=== PATIENT | male | born 1935 | race Hispanic/Latino ===

== ENCOUNTER → 2020-03-12 | Day surgery (SDC) | payer MEDICARE ==
[2020-03-07 10:14] LABS: BASOPHILS # (AUTO) 0.1 (0.0-0.1); BASOPHILS % 0.5 % (0.0-1.0); EOSINOPHILS # (AUTO) 0.1 (0.0-0.4); EOSINOPHILS % 0.9 % (0.0-6.0); HEMATOCRIT 43.4 % (38.2-49.6); LYMPHOCYTES # (AUTO) 3.7 (1.0-3.2); LYMPHOCYTES % 24.6 % (18.0-39.1); MEAN CORPUSCULAR HGB CONC 32.3 g/dL (31-35); MEAN CORPUSCULAR VOLUME 93.1 fL (81-99); MONOCYTES # (AUTO) 1.2 (0.2-0.8); MONOCYTES % 7.8 % (4.4-11.3); NEUTROPHILS # (AUTO) 9.5 (2.1-6.9); NEUTROPHILS % 62.9 % (38.7-80.0); PLATELET COUNT 243 x10e3/uL (140-360); RED BLOOD COUNT 4.66 x10e6/uL (4.3-5.7); RED CELL DISTRIBUTION WIDTH 15.2 % (11.7-14.4)
[2020-03-07 10:28] LABS: INR 0.94; PROTHROMBIN TIME 13.1 seconds (11.9-14.5)
[2020-03-07 10:29] LABS: PARTIAL THROMBOPLASTIN TIME 29.5 seconds (23.8-35.5)
[2020-03-07 10:39] LABS: ALBUMIN 3.7 g/dL (3.5-5.0); ALBUMIN/GLOBULIN RATIO 1.1 (0.8-2.0); ANION GAP 15.5 mmol/L (8-16); CALCIUM 9.3 mg/dL (8.4-10.2); CHOL/HDL RATIO 1.8 (3.9-4.7); CREATININE, SERUM 1.27 mg/dL (0.72-1.25); POTASSIUM 4.5 mmol/L (3.5-5.1)
[~2020-03-12] VITALS: Ht 190.5 cm; Wt 113.4 kg
[2020-03-12] VITALS (8 sets, daily range): BP systolic 118–179; BP diastolic 64–100
[~2020-03-12] MED LIST: ALLOPURINOL100 MG PO; ASPIRIN 325 MG TAB ONE; ELIQUIS2.5 MG; FENTANYL CITRATE/PF 100MCG/2 ML INJ ONE; FINASTERIDE5 MG PO; FLOMAX0.4 MG PO; FUROSEMIDE40 MG PO; HEPARIN SOD/SOD CHLORIDE 2,000 ML ONE; IOPAMIDOL 370 MG/ML 200 ML INFUS..BTL INJ ONE; LEVOFLOXACIN250 MG PO; LIDOCAINE HCL 2% LOCAL 20 ML VIAL ONE; LOSARTAN POTASS25 MG; METOPROLOL TART25 MG PO; MIDAZOLAM HCL 2 MG/2 ML VIAL ONE; PENTOXIFYLLINE400 MG PO; SIMVASTATIN40 MG PO; SODIUM CHLORIDE 0.9% 1000ML 1,000 ML ONE
== END | disposition home or self-care (01) ==
LOC: CATH LAB 08:02
PROVIDERS: ATTEND Internal Medicine Cardiovascular Disease
DX: I25.118 Atherosclerotic heart disease of native coronary artery with other forms of angina pectoris (principal); I50.21 Acute systolic (congestive) heart failure; I48.0 Paroxysmal atrial fibrillation; I11.0 Hypertensive heart disease with heart failure; I70.213 Atherosclerosis of native arteries of extremities with intermittent claudication, bilateral legs; I83.893 Varicose veins of bilateral lower extremities with other complications; M10.9 Gout, unspecified; I50.23 Acute on chronic systolic (congestive) heart failure; Z01.812 Encounter for preprocedural laboratory examination; Z20.828 Contact with and (suspected) exposure to other viral communicable diseases
CPT/HCPCS: 36415; 76937; 80053; 80061; 85025; 85610; 85730; 93458; C1769 ×2; C1887 ×2; J2001; J2250; J3010; J7030; Q9967; U0002; 99152; 99153

== ENCOUNTER 2020-10-15 09:36 | Inpatient (IN) | payer MEDICARE ==
[~2020-10-15] VITALS: Ht 180.3 cm; Wt 103.4 kg
[~2020-10-15 09:36] MED LIST changes: -ASPIRIN 325 MG TAB ONE; -ELIQUIS2.5 MG; +ELIQUIS2.5 MG PO; -FENTANYL CITRATE/PF 100MCG/2 ML INJ ONE; -HEPARIN SOD/SOD CHLORIDE 2,000 ML ONE; -IOPAMIDOL 370 MG/ML 200 ML INFUS..BTL INJ ONE; -LIDOCAINE HCL 2% LOCAL 20 ML VIAL ONE; -MIDAZOLAM HCL 2 MG/2 ML VIAL ONE; -SODIUM CHLORIDE 0.9% 1000ML 1,000 ML ONE
[2020-10-15] MEDS ORDERED: SODIUM CHLORIDE 0.9% 500ML 500 ML IV STA (09:48)
[2020-10-15] MEDS ORDERED: ASPIRIN 81 MG CHEW TAB PO ONE ×2 (10:00→12:30)
[2020-10-15 10:18] LABS: BASOPHILS # (AUTO) 0.1 (0.0-0.1); BASOPHILS % 0.3 % (0.0-1.0); EOSINOPHILS % 0.1 % (0.0-6.0); HEMATOCRIT 25.4 % (38.2-49.6); HEMOGLOBIN 8.3 g/dL (14.0-18.0); LYMPHOCYTES # (AUTO) 1.4 (1.0-3.2); LYMPHOCYTES % 9.5 % (18.0-39.1); MEAN CORPUSCULAR HEMOGLOBIN 29.9 pg (28-32); MEAN CORPUSCULAR HGB CONC 32.7 g/dL (31-35); MEAN CORPUSCULAR VOLUME 91.4 fL (81-99); MONOCYTES # (AUTO) 1.1 (0.2-0.8); MONOCYTES % 7.3 % (4.4-11.3); NEUTROPHILS # (AUTO) 10.4 (2.1-6.9); NEUTROPHILS % 70.3 % (38.7-80.0); PLATELET COUNT 243 x10e3/uL (140-360); RED BLOOD COUNT 2.78 x10e6/uL (4.3-5.7); RED CELL DISTRIBUTION WIDTH 16.3 % (11.7-14.4)
[2020-10-15 10:24] LABS: CLARITY,URINE CLEAR (CLEAR); COLOR,URINE YELLOW (YELLOW); KETONES,URINE TRACE (NEGATIVE); LEUKOCYTE ESTERASE ,URINE NEGATIVE (NEGATIVE); NITRITE,URINE NEGATIVE (NEGATIVE); PROTEIN,URINE DIPSTICK TRACE (NEGATIVE); URINE UROBILINOGEN 0.2 mg/dL (0.2 - 1)
[2020-10-15 10:33] LABS: BACTERIA,URINE FEW /HPF; EPITHELIAL CELLS,URINE FEW /LPF; RBC,URINE 0-5 /HPF (0-5)
[2020-10-15 10:41] LABS: ALBUMIN/GLOBULIN RATIO 0.8 (0.8-2.0); ANION GAP 16.4 mmol/L (8-16); CALCIUM 8.2 mg/dL (8.4-10.2); CREATININE, SERUM 1.82 mg/dL (0.72-1.25)
[2020-10-15 10:47] LABS: CREATINE KINASE MB 2.2 ng/mL (0-5.0)
[2020-10-15 10:58] LABS: POTASSIUM 5.4 mmol/L (3.5-5.1)
[2020-10-15] MEDS ORDERED: METOPROLOL SUCC50 MG PO (11:24)
[2020-10-15] MEDS ORDERED: ASPIRIN EC81 MG PO (11:24)
[2020-10-15] MEDS ORDERED: ENTRESTO 49 MG1 EACH PO (11:24)
[2020-10-15] MEDS ORDERED: METFORMIN HCL500 MG PO (11:24)
[2020-10-15] MEDS ORDERED: SODIUM CHLORIDE 0.9% 1000ML 1,000 ML ONE (11:35)
[2020-10-15] MEDS ORDERED: SODIUM CHLORIDE 0.9% 250ML 250 ML ONE ×3 (11:35→23:51)
[2020-10-15] MEDS ORDERED: SODIUM CHLORIDE 0.9% 1000ML 1,000 ML IV ONE ×2 (11:45→13:30)
[2020-10-15] MEDS ORDERED: SODIUM CHLORIDE 0.9% 250ML 250 ML IV ONE ×2 (11:45→16:30)
[2020-10-15] MEDS ORDERED: PIPERACILLIN/TAZOBACTAM 3.375 GM in SODIUM CHLORIDE 0.9% 50ML 50 ML IV SCH (12:00)
[2020-10-15 14:16] VITALS: BP 101/57
[2020-10-15 14:22] VITALS: BP 101/57
[2020-10-15] MEDS ORDERED: SODIUM CHLORIDE 0.9% 1000ML 1,000 ML IV SCH (14:30)
[2020-10-15 16:37] VITALS: BP 81/69
[2020-10-15 17:10] VITALS: BP 98/62
[2020-10-15] MEDS ORDERED: SODIUM CHLORIDE 0.9% 1000ML 1,000 ML IV STA (17:12)
[2020-10-15] MEDS ORDERED: SOD POLYSTYRENE SULFONATE SUSP 15 GM/60 ML BTL PO STA (17:14)
[2020-10-15] MEDS ORDERED: LACTULOSE SYRUP 20 GM/30 ML UDC PO ONE (17:15)
[2020-10-15] MEDS: Pantoprazole IV 40 MG in SODIUM CHLORIDE 0.9% 50ML 50 ML IV SCH ×2 (18:00→22:45)
[2020-10-15 18:07] LABS: CREATININE,URINE RANDOM 86.18 mg/dL (63-166)
[2020-10-15 18:40] LABS: BASOPHILS % 0.2 % (0.0-1.0); EOSINOPHILS % 0.1 % (0.0-6.0); HEMATOCRIT 22.7 % (38.2-49.6); HEMOGLOBIN 7.4 g/dL (14.0-18.0); LYMPHOCYTES # (AUTO) 1.2 (1.0-3.2); LYMPHOCYTES % 10.9 % (18.0-39.1); MEAN CORPUSCULAR HEMOGLOBIN 29.7 pg (28-32); MEAN CORPUSCULAR HGB CONC 32.6 g/dL (31-35); MEAN CORPUSCULAR VOLUME 91.2 fL (81-99); MONOCYTES # (AUTO) 0.7 (0.2-0.8); MONOCYTES % 5.9 % (4.4-11.3); NEUTROPHILS # (AUTO) 8.1 (2.1-6.9); NEUTROPHILS % 72.4 % (38.7-80.0); PLATELET COUNT 253 x10e3/uL (140-360); RED BLOOD COUNT 2.49 x10e6/uL (4.3-5.7); RED CELL DISTRIBUTION WIDTH 16.4 % (11.7-14.4)
[2020-10-15 19:04] LABS: CREATINE KINASE MB 3.3 ng/mL (0-5.0)
[2020-10-15 19:35] LABS: FREE THYROXINE INDEX 1.57 (1.4-3.8); THYROID STIMULATING HORMONE 1.62 uIU/mL (0.350-4.940)
[2020-10-15 20:00] VITALS: BP 112/75
[2020-10-15] MEDS ORDERED: FUROSEMIDE INJ 10 MG/ML 2 ML VIAL IV PRN (20:15)
[2020-10-15 21:15] VITALS: BP 112/75
[2020-10-15] MEDS: CLINDAMYCIN 600MG / 50ML 50 ML IV SCH (21:29)
[2020-10-16] VITALS (8 sets, daily range): BP systolic 104–135; BP diastolic 47–75
[2020-10-16 00:17] LABS: FERRITIN 78.14 ng/mL (21.81-274.66)
[2020-10-16] MEDS ORDERED: CYANOCOBALAMIN INJ 1,000 MCG/ML VIAL IM ONE (03:00)
[2020-10-16] MEDS: Pantoprazole IV 40 MG in SODIUM CHLORIDE 0.9% 50ML 50 ML IV SCH ×5 (03:45→21:45)
[2020-10-16] MEDS ORDERED: SODIUM CHLORIDE 0.9% 250ML 250 ML ONE (04:07)
[2020-10-16] MEDS: CLINDAMYCIN 600MG / 50ML 50 ML IV SCH ×3 (07:15→21:10)
[2020-10-16] MEDS ORDERED: FUROSEMIDE INJ 10 MG/ML 2 ML VIAL IV PRN (08:00)
[2020-10-16 09:01] LABS: BASOPHILS # (AUTO) 0.1 (0.0-0.1); BASOPHILS % 0.5 % (0.0-1.0); EOSINOPHILS # (AUTO) 0.1 (0.0-0.4); EOSINOPHILS % 0.7 % (0.0-6.0); HEMATOCRIT 31.2 % (38.2-49.6); HEMOGLOBIN 10.2 g/dL (14.0-18.0); LYMPHOCYTES # (AUTO) 1.1 (1.0-3.2); LYMPHOCYTES % 11.1 % (18.0-39.1); MEAN CORPUSCULAR HEMOGLOBIN 29.6 pg (28-32); MEAN CORPUSCULAR HGB CONC 32.7 g/dL (31-35); MEAN CORPUSCULAR VOLUME 90.4 fL (81-99); MONOCYTES # (AUTO) 0.6 (0.2-0.8); NEUTROPHILS # (AUTO) 7.5 (2.1-6.9); NEUTROPHILS % 75.1 % (38.7-80.0); PLATELET COUNT 202 x10e3/uL (140-360); RED BLOOD COUNT 3.45 x10e6/uL (4.3-5.7); RED CELL DISTRIBUTION WIDTH 15.9 % (11.7-14.4)
[2020-10-16 09:35] LABS: ALBUMIN 2.2 g/dL (3.5-5.0); ALBUMIN/GLOBULIN RATIO 0.8 (0.8-2.0); ANION GAP 13.6 mmol/L (8-16); CREATININE, SERUM 1.25 mg/dL (0.72-1.25); POTASSIUM 4.6 mmol/L (3.5-5.1)
[2020-10-16] MEDS: CYANOCOBALAMIN INJ 1,000 MCG/ML VIAL IM SCH (09:49)
[2020-10-16] MEDS: IRON SUCROSE 100 MG in SODIUM CHLORIDE 0.9% 100 ML 100 ML IV SCH (09:49)
[2020-10-16 10:43] LABS: CREATINE KINASE MB 2.8 ng/mL (0-5.0)
[2020-10-16] MEDS: SODIUM BICARBONATE 8.4% SYRING 100 ML in DEXTROSE 5% 1,000 ML IV SCH (12:30)
[2020-10-16] MEDS ORDERED: PEG (High)/E-LYTE SOLN 4,000 ML BTL PO ONE (14:00)
[2020-10-16 16:05] LABS: FREE T4 (FREE THYROXINE) 0.99 ng/dL (0.8-1.8); THYROID STIMULATING HORMONE 3.613 uIU/mL (0.350-4.940)
[2020-10-17] VITALS (11 sets, daily range): BP systolic 93–133; BP diastolic 48–73
[2020-10-17] MEDS ORDERED: ONDANSETRON HCL INJ 2MG/ML 2ML 2 MG/ML VIAL IV PRN (01:15)
[2020-10-17 01:50] LABS: BASOPHILS % 0.3 % (0.0-1.0); EOSINOPHILS # (AUTO) 0.1 (0.0-0.4); EOSINOPHILS % 0.5 % (0.0-6.0); HEMATOCRIT 25.1 % (38.2-49.6); HEMOGLOBIN 8.1 g/dL (14.0-18.0); LYMPHOCYTES % 8.3 % (18.0-39.1); MEAN CORPUSCULAR HEMOGLOBIN 29.5 pg (28-32); MEAN CORPUSCULAR HGB CONC 32.3 g/dL (31-35); MEAN CORPUSCULAR VOLUME 91.3 fL (81-99); MONOCYTES # (AUTO) 0.7 (0.2-0.8); MONOCYTES % 5.8 % (4.4-11.3); NEUTROPHILS # (AUTO) 9.2 (2.1-6.9); NEUTROPHILS % 78.7 % (38.7-80.0); PLATELET COUNT 197 x10e3/uL (140-360); RED BLOOD COUNT 2.75 x10e6/uL (4.3-5.7); RED CELL DISTRIBUTION WIDTH 16.3 % (11.7-14.4)
[2020-10-17] MEDS: Pantoprazole IV 40 MG in SODIUM CHLORIDE 0.9% 50ML 50 ML IV SCH ×5 (02:52→21:09)
[2020-10-17] MEDS: SODIUM BICARBONATE 8.4% SYRING 100 ML in DEXTROSE 5% 1,000 ML IV SCH ×2 (05:16→21:09)
[2020-10-17] MEDS: CLINDAMYCIN 600MG / 50ML 50 ML IV SCH ×3 (05:20→21:09)
[2020-10-17] MEDS: IRON SUCROSE 100 MG in SODIUM CHLORIDE 0.9% 100 ML 100 ML IV SCH (09:00)
[2020-10-17] MEDS: CYANOCOBALAMIN INJ 1,000 MCG/ML VIAL IM SCH (09:00)
[2020-10-17] MEDS ORDERED: PROPOFOL IV EMULSION 10 MG/ML 20 ML VIAL ONE (12:59)
[2020-10-17] MEDS: METOCLOPRAMIDE HCL 10 MG/2ML VIAL IV SCH (21:09)
[2020-10-18] VITALS (8 sets, daily range): BP systolic 98–135; BP diastolic 54–73
[2020-10-18] MEDS: METOCLOPRAMIDE HCL 10 MG/2ML VIAL IV SCH ×4 (00:33→17:59)
[2020-10-18] MEDS: Pantoprazole IV 40 MG in SODIUM CHLORIDE 0.9% 50ML 50 ML IV SCH ×4 (04:15→23:45)
[2020-10-18] MEDS: CLINDAMYCIN 600MG / 50ML 50 ML IV SCH ×3 (05:30→23:31)
[2020-10-18] MEDS: IRON SUCROSE 100 MG in SODIUM CHLORIDE 0.9% 100 ML 100 ML IV SCH (09:00)
[2020-10-18] MEDS: CYANOCOBALAMIN INJ 1,000 MCG/ML VIAL IM SCH (09:00)
[2020-10-18] MEDS: SODIUM BICARBONATE 8.4% SYRING 100 ML in DEXTROSE 5% 1,000 ML IV SCH (10:17)
[2020-10-18 11:12] LABS: ALBUMIN 1.8 g/dL (3.5-5.0); ALBUMIN/GLOBULIN RATIO 0.7 (0.8-2.0); CALCIUM 7.9 mg/dL (8.4-10.2); CREATININE, SERUM 1.06 mg/dL (0.72-1.25)
[2020-10-18 15:45] LABS: BASOPHILS % 0.5 % (0.0-1.0); EOSINOPHILS # (AUTO) 0.1 (0.0-0.4); EOSINOPHILS % 1.5 % (0.0-6.0); HEMATOCRIT 23.6 % (38.2-49.6); HEMOGLOBIN 7.3 g/dL (14.0-18.0); LYMPHOCYTES # (AUTO) 1.6 (1.0-3.2); LYMPHOCYTES % 18.8 % (18.0-39.1); MEAN CORPUSCULAR HEMOGLOBIN 29.8 pg (28-32); MEAN CORPUSCULAR HGB CONC 30.9 g/dL (31-35); MEAN CORPUSCULAR VOLUME 96.3 fL (81-99); MONOCYTES # (AUTO) 0.8 (0.2-0.8); MONOCYTES % 8.7 % (4.4-11.3); NEUTROPHILS # (AUTO) 5.8 (2.1-6.9); NEUTROPHILS % 65.8 % (38.7-80.0); PLATELET COUNT 212 x10e3/uL (140-360); RED BLOOD COUNT 2.45 x10e6/uL (4.3-5.7)
[2020-10-18] MEDS: SACUBITRIL/VALSARTAN 1 EACH TABLET PO SCH (16:48)
[2020-10-18] MEDS: ALLOPURINOL 100 MG TAB PO SCH (16:48)
[2020-10-18] MEDS ORDERED: SODIUM CHLORIDE 0.9% 250ML 250 ML IV ONE (18:15)
[2020-10-18] MEDS ORDERED: FUROSEMIDE INJ 10 MG/ML 2 ML VIAL IV ONE (21:15)
[2020-10-18] MEDS: SIMVASTATIN 40 MG TAB PO SCH (22:16)
[2020-10-18] MEDS: PENTOXIFYLLINE 400 MG TAB CR PO SCH (22:16)
[2020-10-19] VITALS (13 sets, daily range): BP systolic 89–116; BP diastolic 50–68
[2020-10-19] MEDS: METOCLOPRAMIDE HCL 10 MG/2ML VIAL IV SCH ×4 (00:35→17:37)
[2020-10-19] MEDS ORDERED: SODIUM CHLORIDE 0.9% 250ML 250 ML ONE ×2 (01:47→11:15)
[2020-10-19] MEDS ORDERED: SODIUM CHLORIDE 0.9% 250ML 250 ML IV ONE (06:15)
[2020-10-19] MEDS: Pantoprazole IV 40 MG in SODIUM CHLORIDE 0.9% 50ML 50 ML IV SCH ×4 (06:21→20:03)
[2020-10-19] MEDS: CLINDAMYCIN 600MG / 50ML 50 ML IV SCH ×3 (06:29→21:35)
[2020-10-19] MEDS ORDERED: SODIUM CHLORIDE 0.9% 50ML 50 ML ONE (07:35)
[2020-10-19] MEDS ORDERED: IOPAMIDOL 370 MG/ML 200 ML INFUS..BTL INJ ONE (07:35)
[2020-10-19] MEDS: METOPROLOL SUCCINATE 50 MG TAB XL PO SCH (09:00)
[2020-10-19] MEDS: CYANOCOBALAMIN INJ 1,000 MCG/ML VIAL IM SCH (10:34)
[2020-10-19] MEDS: TAMSULOSIN HCL 0.4 MG CAP PO SCH (10:35)
[2020-10-19] MEDS: FINASTERIDE 5 MG TAB PO SCH (10:35)
[2020-10-19] MEDS: SACUBITRIL/VALSARTAN 1 EACH TABLET PO SCH ×2 (10:35→16:24)
[2020-10-19] MEDS: PENTOXIFYLLINE 400 MG TAB CR PO SCH ×3 (10:36→21:30)
[2020-10-19] MEDS: ALLOPURINOL 100 MG TAB PO SCH ×2 (10:36→16:24)
[2020-10-19 11:49] LABS: ALBUMIN/GLOBULIN RATIO 0.7 (0.8-2.0); ANION GAP 12.8 mmol/L (8-16); CALCIUM 7.9 mg/dL (8.4-10.2); CREATININE, SERUM 1.09 mg/dL (0.72-1.25); POTASSIUM 3.8 mmol/L (3.5-5.1)
[2020-10-19] MEDS: IRON SUCROSE 100 MG in SODIUM CHLORIDE 0.9% 100 ML 100 ML IV SCH (13:55)
[2020-10-19 15:24] LABS: BASOPHILS # (AUTO) 0.1 (0.0-0.1); BASOPHILS % 0.6 % (0.0-1.0); EOSINOPHILS # (AUTO) 0.1 (0.0-0.4); EOSINOPHILS % 1.1 % (0.0-6.0); HEMATOCRIT 28.9 % (38.2-49.6); HEMOGLOBIN 9.1 g/dL (14.0-18.0); LYMPHOCYTES # (AUTO) 1.5 (1.0-3.2); LYMPHOCYTES % 17.5 % (18.0-39.1); MEAN CORPUSCULAR HEMOGLOBIN 30.1 pg (28-32); MEAN CORPUSCULAR HGB CONC 31.5 g/dL (31-35); MEAN CORPUSCULAR VOLUME 95.7 fL (81-99); MONOCYTES # (AUTO) 0.8 (0.2-0.8); MONOCYTES % 9.9 % (4.4-11.3); NEUTROPHILS # (AUTO) 5.7 (2.1-6.9); NEUTROPHILS % 67.6 % (38.7-80.0); PLATELET COUNT 208 x10e3/uL (140-360); RED BLOOD COUNT 3.02 x10e6/uL (4.3-5.7); RED CELL DISTRIBUTION WIDTH 16.5 % (11.7-14.4)
[2020-10-19] MEDS ORDERED: SPIRONOLACTONE 25 MG TAB PO ONE (20:30)
[2020-10-19] MEDS: SIMVASTATIN 40 MG TAB PO SCH (21:30)
[2020-10-20] VITALS (11 sets, daily range): BP systolic 96–117; BP diastolic 57–65
[2020-10-20] MEDS: METOCLOPRAMIDE HCL 10 MG/2ML VIAL IV SCH ×5 (02:35→18:34)
[2020-10-20] MEDS: Pantoprazole IV 40 MG in SODIUM CHLORIDE 0.9% 50ML 50 ML IV SCH ×4 (02:36→16:50)
[2020-10-20 04:46] LABS: BASOPHILS % 0.6 % (0.0-1.0); EOSINOPHILS # (AUTO) 0.1 (0.0-0.4); EOSINOPHILS % 1.8 % (0.0-6.0); HEMATOCRIT 28.6 % (38.2-49.6); HEMOGLOBIN 9.1 g/dL (14.0-18.0); LYMPHOCYTES # (AUTO) 1.4 (1.0-3.2); LYMPHOCYTES % 19.2 % (18.0-39.1); MEAN CORPUSCULAR HEMOGLOBIN 30.3 pg (28-32); MEAN CORPUSCULAR HGB CONC 31.8 g/dL (31-35); MEAN CORPUSCULAR VOLUME 95.3 fL (81-99); MONOCYTES # (AUTO) 0.6 (0.2-0.8); MONOCYTES % 8.3 % (4.4-11.3); NEUTROPHILS # (AUTO) 4.8 (2.1-6.9); NEUTROPHILS % 66.4 % (38.7-80.0); PLATELET COUNT 204 x10e3/uL (140-360); RED CELL DISTRIBUTION WIDTH 16.6 % (11.7-14.4)
[2020-10-20 04:57] LABS: INR 1.02
[2020-10-20] MEDS: CLINDAMYCIN 600MG / 50ML 50 ML IV SCH ×2 (07:43→14:00)
[2020-10-20] MEDS: METOPROLOL SUCCINATE 50 MG TAB XL PO SCH (09:00)
[2020-10-20] MEDS: SACUBITRIL/VALSARTAN 1 EACH TABLET PO SCH ×2 (09:00→17:00)
[2020-10-20] MEDS: PENTOXIFYLLINE 400 MG TAB CR PO SCH ×3 (09:47→21:00)
[2020-10-20] MEDS ORDERED: LIDOCAINE HCL 2% LOCAL INJ 5 ML SDV VIAL INJ ONE (09:47)
[2020-10-20] MEDS ORDERED: PROPOFOL IV EMULSION 10 MG/ML 20 ML VIAL ONE (09:47)
[2020-10-20] MEDS: FINASTERIDE 5 MG TAB PO SCH (09:47)
[2020-10-20] MEDS: TAMSULOSIN HCL 0.4 MG CAP PO SCH (09:47)
[2020-10-20] MEDS: IRON SUCROSE 100 MG in SODIUM CHLORIDE 0.9% 100 ML 100 ML IV SCH (09:47)
[2020-10-20] MEDS: CYANOCOBALAMIN INJ 1,000 MCG/ML VIAL IM SCH (09:47)
[2020-10-20] MEDS: ALLOPURINOL 100 MG TAB PO SCH ×2 (09:48→17:00)
[2020-10-20] MEDS ORDERED: SODIUM CHLORIDE 0.9% 500ML 500 ML ONE (16:46)
[2020-10-20] MEDS ORDERED: IOPAMIDOL 370 MG/ML 200 ML INFUS..BTL INJ ONE (18:15)
[2020-10-20] MEDS ORDERED: SODIUM CHLORIDE 0.9% 100 ML ONE (18:15)
[2020-10-20] MEDS: SIMVASTATIN 40 MG TAB PO SCH (21:00)
[2020-10-20] MEDS ORDERED: SODIUM CHLORIDE 0.9% 250ML 250 ML ONE (22:11)
[2020-10-21] VITALS (8 sets, daily range): BP systolic 102–122; BP diastolic 58–72
[2020-10-21] MEDS: Pantoprazole IV 40 MG in SODIUM CHLORIDE 0.9% 50ML 50 ML IV SCH ×7 (01:45→23:48)
[2020-10-21] MEDS: METOCLOPRAMIDE HCL 10 MG/2ML VIAL IV SCH ×5 (02:04→23:47)
[2020-10-21] MEDS: CLINDAMYCIN 600MG / 50ML 50 ML IV SCH ×4 (02:04→22:45)
[2020-10-21] MEDS ORDERED: SODIUM CHLORIDE 0.9% 250ML 250 ML ONE ×3 (02:15→15:36)
[2020-10-21 05:51] LABS: BASOPHILS % 0.6 % (0.0-1.0); EOSINOPHILS # (AUTO) 0.1 (0.0-0.4); EOSINOPHILS % 1.7 % (0.0-6.0); HEMATOCRIT 24.7 % (38.2-49.6); HEMOGLOBIN 7.7 g/dL (14.0-18.0); LYMPHOCYTES # (AUTO) 1.2 (1.0-3.2); MEAN CORPUSCULAR HEMOGLOBIN 30.1 pg (28-32); MEAN CORPUSCULAR HGB CONC 31.2 g/dL (31-35); MEAN CORPUSCULAR VOLUME 96.5 fL (81-99); MONOCYTES # (AUTO) 0.6 (0.2-0.8); MONOCYTES % 7.6 % (4.4-11.3); NEUTROPHILS # (AUTO) 5.1 (2.1-6.9); PLATELET COUNT 322 x10e3/uL (140-360); RED BLOOD COUNT 2.56 x10e6/uL (4.3-5.7)
[2020-10-21] MEDS ORDERED: SODIUM CHLORIDE 0.9% 250ML 250 ML IV ONE (06:30)
[2020-10-21] MEDS: SACUBITRIL/VALSARTAN 1 EACH TABLET PO SCH ×2 (09:00→17:00)
[2020-10-21] MEDS: METOPROLOL SUCCINATE 50 MG TAB XL PO SCH (09:00)
[2020-10-21] MEDS: PENTOXIFYLLINE 400 MG TAB CR PO SCH ×3 (09:38→23:02)
[2020-10-21] MEDS: FINASTERIDE 5 MG TAB PO SCH (09:39)
[2020-10-21] MEDS: TAMSULOSIN HCL 0.4 MG CAP PO SCH (09:39)
[2020-10-21] MEDS: ALLOPURINOL 100 MG TAB PO SCH ×2 (09:39→17:00)
[2020-10-21] MEDS: CYANOCOBALAMIN INJ 1,000 MCG/ML VIAL IM SCH (09:41)
[2020-10-21] MEDS: IRON SUCROSE 100 MG in SODIUM CHLORIDE 0.9% 100 ML 100 ML IV SCH (13:00)
[2020-10-21] MEDS ORDERED: MIDAZOLAM HCL 2 MG/2 ML VIAL ONE (17:23)
[2020-10-21] MEDS ORDERED: FENTANYL CITRATE/PF 100MCG/2 ML INJ ONE (17:24)
[2020-10-21] MEDS ORDERED: LIDOCAINE HCL 2% LOCAL 20 ML VIAL ONE (17:24)
[2020-10-21] MEDS ORDERED: HEPARIN SOD/SOD CHLORIDE 2,000 ML ONE (17:24)
[2020-10-21] MEDS ORDERED: IOPAMIDOL 300MG/ML 100 ML INFUS..BTL IV ONE (17:26)
[2020-10-21] MEDS ORDERED: SODIUM CHLORIDE 0.9% 1000ML 1,000 ML ONE (17:27)
[2020-10-21] MEDS ORDERED: IOPAMIDOL 300MG/ML 50ML INFUS..BTL IV ONE (17:27)
[2020-10-21] MEDS: SIMVASTATIN 40 MG TAB PO SCH (23:02)
[2020-10-22] VITALS (8 sets, daily range): BP systolic 96–135; BP diastolic 63–70
[2020-10-22] MEDS: Pantoprazole IV 40 MG in SODIUM CHLORIDE 0.9% 50ML 50 ML IV SCH ×5 (03:04→23:12)
[2020-10-22 05:24] LABS: BASOPHILS % 0.6 % (0.0-1.0); EOSINOPHILS # (AUTO) 0.2 (0.0-0.4); EOSINOPHILS % 2.2 % (0.0-6.0); HEMATOCRIT 27.8 % (38.2-49.6); HEMOGLOBIN 8.9 g/dL (14.0-18.0); LYMPHOCYTES # (AUTO) 1.4 (1.0-3.2); MEAN CORPUSCULAR HEMOGLOBIN 30.1 pg (28-32); MEAN CORPUSCULAR VOLUME 93.9 fL (81-99); MONOCYTES # (AUTO) 0.6 (0.2-0.8); NEUTROPHILS # (AUTO) 4.8 (2.1-6.9); NEUTROPHILS % 66.1 % (38.7-80.0); PLATELET COUNT 273 x10e3/uL (140-360); RED BLOOD COUNT 2.96 x10e6/uL (4.3-5.7); RED CELL DISTRIBUTION WIDTH 16.3 % (11.7-14.4)
[2020-10-22] MEDS: CLINDAMYCIN 600MG / 50ML 50 ML IV SCH ×3 (06:01→21:26)
[2020-10-22] MEDS: METOCLOPRAMIDE HCL 10 MG/2ML VIAL IV SCH ×4 (06:01→23:12)
[2020-10-22] MEDS: SACUBITRIL/VALSARTAN 1 EACH TABLET PO SCH ×2 (09:00→16:57)
[2020-10-22] MEDS: ALLOPURINOL 100 MG TAB PO SCH ×2 (09:00→16:57)
[2020-10-22] MEDS: FINASTERIDE 5 MG TAB PO SCH (09:00)
[2020-10-22] MEDS: PENTOXIFYLLINE 400 MG TAB CR PO SCH ×3 (09:00→21:26)
[2020-10-22] MEDS: CYANOCOBALAMIN INJ 1,000 MCG/ML VIAL IM SCH (09:00)
[2020-10-22] MEDS: IRON SUCROSE 100 MG in SODIUM CHLORIDE 0.9% 100 ML 100 ML IV SCH (09:00)
[2020-10-22] MEDS: TAMSULOSIN HCL 0.4 MG CAP PO SCH (09:00)
[2020-10-22] MEDS: METOPROLOL SUCCINATE 50 MG TAB XL PO SCH (09:00)
[2020-10-22] MEDS: SUCRALFATE 1 GM TAB PO SCH ×3 (12:00→23:12)
[2020-10-22] MEDS: SIMVASTATIN 40 MG TAB PO SCH (21:26)
[2020-10-23 01:36] VITALS: BP 101/62
[2020-10-23] MEDS: Pantoprazole IV 40 MG in SODIUM CHLORIDE 0.9% 50ML 50 ML IV SCH ×5 (04:47→22:37)
[2020-10-23] MEDS: SUCRALFATE 1 GM TAB PO SCH ×4 (05:45→23:41)
[2020-10-23] MEDS: CLINDAMYCIN 600MG / 50ML 50 ML IV SCH ×3 (05:45→21:53)
[2020-10-23] MEDS: METOCLOPRAMIDE HCL 10 MG/2ML VIAL IV SCH ×4 (05:45→23:41)
[2020-10-23 06:02] VITALS: BP 100/55
[2020-10-23 08:40] VITALS: BP 96/54
[2020-10-23 08:59] VITALS: BP 96/54
[2020-10-23] MEDS: IRON SUCROSE 100 MG in SODIUM CHLORIDE 0.9% 100 ML 100 ML IV SCH (09:47)
[2020-10-23] MEDS: SACUBITRIL/VALSARTAN 1 EACH TABLET PO SCH ×2 (09:48→18:26)
[2020-10-23] MEDS: FINASTERIDE 5 MG TAB PO SCH (09:48)
[2020-10-23] MEDS: TAMSULOSIN HCL 0.4 MG CAP PO SCH (09:48)
[2020-10-23] MEDS: CYANOCOBALAMIN INJ 1,000 MCG/ML VIAL IM SCH (09:48)
[2020-10-23] MEDS: PENTOXIFYLLINE 400 MG TAB CR PO SCH ×3 (09:49→21:53)
[2020-10-23] MEDS: ALLOPURINOL 100 MG TAB PO SCH ×2 (09:49→18:23)
[2020-10-23] MEDS: METOPROLOL SUCCINATE 50 MG TAB XL PO SCH (09:49)
[2020-10-23 12:04] VITALS: BP 102/55
[2020-10-23 19:43] LABS: BASOPHILS # (AUTO) 0.1 (0.0-0.1); BASOPHILS % 0.7 % (0.0-1.0); EOSINOPHILS # (AUTO) 0.2 (0.0-0.4); EOSINOPHILS % 2.5 % (0.0-6.0); HEMATOCRIT 27.6 % (38.2-49.6); HEMOGLOBIN 8.9 g/dL (14.0-18.0); LYMPHOCYTES # (AUTO) 1.5 (1.0-3.2); LYMPHOCYTES % 21.7 % (18.0-39.1); MEAN CORPUSCULAR HEMOGLOBIN 30.3 pg (28-32); MEAN CORPUSCULAR HGB CONC 32.2 g/dL (31-35); MEAN CORPUSCULAR VOLUME 93.9 fL (81-99); MONOCYTES # (AUTO) 0.5 (0.2-0.8); MONOCYTES % 7.9 % (4.4-11.3); NEUTROPHILS # (AUTO) 4.3 (2.1-6.9); NEUTROPHILS % 63.2 % (38.7-80.0); PLATELET COUNT 284 x10e3/uL (140-360); RED BLOOD COUNT 2.94 x10e6/uL (4.3-5.7); RED CELL DISTRIBUTION WIDTH 16.1 % (11.7-14.4)
[2020-10-23 19:53] LABS: ANION GAP 12.5 mmol/L (8-16); CALCIUM 7.3 mg/dL (8.4-10.2); CREATININE, SERUM 0.84 mg/dL (0.72-1.25); POTASSIUM 3.5 mmol/L (3.5-5.1)
[2020-10-23 20:00] VITALS: BP 112/62
[2020-10-23] MEDS: SIMVASTATIN 40 MG TAB PO SCH (21:53)
[2020-10-24] VITALS (8 sets, daily range): BP systolic 100–120; BP diastolic 58–79
[2020-10-24] MEDS: Pantoprazole IV 40 MG in SODIUM CHLORIDE 0.9% 50ML 50 ML IV SCH ×4 (04:32→19:59)
[2020-10-24] MEDS: SUCRALFATE 1 GM TAB PO SCH ×3 (05:15→17:28)
[2020-10-24] MEDS: METOCLOPRAMIDE HCL 10 MG/2ML VIAL IV SCH ×3 (05:15→17:28)
[2020-10-24] MEDS: CLINDAMYCIN 600MG / 50ML 50 ML IV SCH ×3 (05:15→20:58)
[2020-10-24] MEDS: ALLOPURINOL 100 MG TAB PO SCH ×2 (09:00→17:28)
[2020-10-24] MEDS: SACUBITRIL/VALSARTAN 1 EACH TABLET PO SCH ×2 (09:00→17:28)
[2020-10-24] MEDS: PENTOXIFYLLINE 400 MG TAB CR PO SCH ×3 (09:00→20:58)
[2020-10-24] MEDS: IRON SUCROSE 100 MG in SODIUM CHLORIDE 0.9% 100 ML 100 ML IV SCH (09:57)
[2020-10-24] MEDS: CYANOCOBALAMIN INJ 1,000 MCG/ML VIAL IM SCH (10:09)
[2020-10-24] MEDS ORDERED: PROPOFOL IV EMULSION 10 MG/ML 20 ML VIAL ONE (11:25)
[2020-10-24] MEDS ORDERED: LIDOCAINE HCL 2% LOCAL INJ 5 ML SDV VIAL INJ ONE (11:25)
[2020-10-24] MEDS: FINASTERIDE 5 MG TAB PO SCH (17:27)
[2020-10-24] MEDS: TAMSULOSIN HCL 0.4 MG CAP PO SCH (17:27)
[2020-10-24] MEDS: METOPROLOL SUCCINATE 50 MG TAB XL PO SCH (17:27)
[2020-10-24] MEDS: SIMVASTATIN 40 MG TAB PO SCH (20:58)
[2020-10-25] VITALS (10 sets, daily range): BP systolic 89–122; BP diastolic 52–74
[2020-10-25] MEDS: METOCLOPRAMIDE HCL 10 MG/2ML VIAL IV SCH ×4 (00:17→16:41)
[2020-10-25] MEDS: SUCRALFATE 1 GM TAB PO SCH ×4 (00:17→16:41)
[2020-10-25] MEDS: Pantoprazole IV 40 MG in SODIUM CHLORIDE 0.9% 50ML 50 ML IV SCH ×5 (00:45→21:30)
[2020-10-25] MEDS: CLINDAMYCIN 600MG / 50ML 50 ML IV SCH ×3 (05:22→22:17)
[2020-10-25] MEDS ORDERED: SODIUM CHLORIDE 0.9% 0 ML ONE (07:24)
[2020-10-25] MEDS: SACUBITRIL/VALSARTAN 1 EACH TABLET PO SCH ×2 (09:00→16:41)
[2020-10-25] MEDS ORDERED: SODIUM CHLORIDE 0.9% 250ML 250 ML ONE (09:12)
[2020-10-25] MEDS: IRON SUCROSE 100 MG in SODIUM CHLORIDE 0.9% 100 ML 100 ML IV SCH (09:15)
[2020-10-25] MEDS: CYANOCOBALAMIN INJ 1,000 MCG/ML VIAL IM SCH (09:15)
[2020-10-25] MEDS: PENTOXIFYLLINE 400 MG TAB CR PO SCH ×3 (09:17→21:36)
[2020-10-25] MEDS: TAMSULOSIN HCL 0.4 MG CAP PO SCH (09:17)
[2020-10-25] MEDS: FINASTERIDE 5 MG TAB PO SCH (09:17)
[2020-10-25] MEDS: ALLOPURINOL 100 MG TAB PO SCH ×2 (09:17→16:41)
[2020-10-25] MEDS: METOPROLOL SUCCINATE 50 MG TAB XL PO SCH (12:06)
[2020-10-25] MEDS ORDERED: HYDROCODONE/APAP 5MG-325MG TAB PO PRN (13:00)
[2020-10-25] MEDS: ACETAMINOPHEN 325 MG TAB PO PRN (13:57)
[2020-10-25 16:25] LABS: BASOPHILS % 0.6 % (0.0-1.0); EOSINOPHILS # (AUTO) 0.2 (0.0-0.4); EOSINOPHILS % 3.2 % (0.0-6.0); HEMATOCRIT 27.1 % (38.2-49.6); HEMOGLOBIN 8.6 g/dL (14.0-18.0); LYMPHOCYTES # (AUTO) 1.5 (1.0-3.2); MEAN CORPUSCULAR HGB CONC 31.7 g/dL (31-35); MEAN CORPUSCULAR VOLUME 94.4 fL (81-99); MONOCYTES # (AUTO) 0.7 (0.2-0.8); MONOCYTES % 9.5 % (4.4-11.3); NEUTROPHILS # (AUTO) 4.4 (2.1-6.9); NEUTROPHILS % 63.3 % (38.7-80.0); PLATELET COUNT 286 x10e3/uL (140-360); RED BLOOD COUNT 2.87 x10e6/uL (4.3-5.7); RED CELL DISTRIBUTION WIDTH 16.2 % (11.7-14.4)
[2020-10-25 16:39] LABS: ANION GAP 13.5 mmol/L (8-16); CALCIUM 7.3 mg/dL (8.4-10.2); CREATININE, SERUM 0.79 mg/dL (0.72-1.25); POTASSIUM 3.5 mmol/L (3.5-5.1)
[2020-10-25] MEDS: SIMVASTATIN 40 MG TAB PO SCH (21:36)
[2020-10-25] MEDS ORDERED: BENZONATATE 100 MG CAP PO PRN (22:00)
[2020-10-26] VITALS (9 sets, daily range): BP systolic 91–122; BP diastolic 50–72
[2020-10-26] MEDS: SUCRALFATE 1 GM TAB PO SCH ×4 (00:27→17:49)
[2020-10-26] MEDS: METOCLOPRAMIDE HCL 10 MG/2ML VIAL IV SCH ×4 (00:27→17:49)
[2020-10-26] MEDS: Pantoprazole IV 40 MG in SODIUM CHLORIDE 0.9% 50ML 50 ML IV SCH ×5 (04:10→21:50)
[2020-10-26] MEDS: CLINDAMYCIN 600MG / 50ML 50 ML IV SCH (05:06)
[2020-10-26 05:43] LABS: BASOPHILS # (AUTO) 0.1 (0.0-0.1); BASOPHILS % 0.9 % (0.0-1.0); EOSINOPHILS # (AUTO) 0.2 (0.0-0.4); HEMATOCRIT 28.3 % (38.2-49.6); LYMPHOCYTES # (AUTO) 1.6 (1.0-3.2); LYMPHOCYTES % 23.3 % (18.0-39.1); MEAN CORPUSCULAR HEMOGLOBIN 30.1 pg (28-32); MEAN CORPUSCULAR HGB CONC 31.8 g/dL (31-35); MEAN CORPUSCULAR VOLUME 94.6 fL (81-99); MONOCYTES # (AUTO) 0.6 (0.2-0.8); MONOCYTES % 9.3 % (4.4-11.3); NEUTROPHILS # (AUTO) 4.1 (2.1-6.9); PLATELET COUNT 321 x10e3/uL (140-360); RED BLOOD COUNT 2.99 x10e6/uL (4.3-5.7); RED CELL DISTRIBUTION WIDTH 16.2 % (11.7-14.4)
[2020-10-26 06:23] LABS: ANION GAP 11.3 mmol/L (8-16); CALCIUM 7.4 mg/dL (8.4-10.2); CREATININE, SERUM 0.79 mg/dL (0.72-1.25); MAGNESIUM 1.6 MG/DL (1.3-2.1); PHOSPHORUS 1.8 MG/DL (2.3-4.7); POTASSIUM 3.3 mmol/L (3.5-5.1)
[2020-10-26] MEDS ORDERED: SODIUM CHLORIDE 0.9% 50ML 50 ML ONE (07:47)
[2020-10-26] MEDS: FINASTERIDE 5 MG TAB PO SCH (09:00)
[2020-10-26] MEDS: ALLOPURINOL 100 MG TAB PO SCH ×2 (09:00→16:40)
[2020-10-26] MEDS: TAMSULOSIN HCL 0.4 MG CAP PO SCH (09:00)
[2020-10-26] MEDS: SACUBITRIL/VALSARTAN 1 EACH TABLET PO SCH ×2 (09:00→16:40)
[2020-10-26] MEDS: METOPROLOL SUCCINATE 25 MG TAB XL PO SCH (09:00)
[2020-10-26] MEDS ORDERED: POTASSIUM PHOSPHATE 15 MM in SODIUM CHLORIDE 0.9% 250ML 250 ML IV ONE (09:00)
[2020-10-26] MEDS: CYANOCOBALAMIN INJ 1,000 MCG/ML VIAL IM SCH (09:00)
[2020-10-26] MEDS: SODIUM BICARBONATE 650 MG TAB PO SCH ×2 (09:00→16:40)
[2020-10-26] MEDS: PENTOXIFYLLINE 400 MG TAB CR PO SCH ×3 (09:00→21:50)
[2020-10-26] MEDS: ACETAMINOPHEN 325 MG TAB PO PRN (13:45)
[2020-10-26] MEDS: SIMVASTATIN 40 MG TAB PO SCH (21:50)
[2020-10-27] VITALS (7 sets, daily range): BP systolic 91–138; BP diastolic 52–70
[2020-10-27] MEDS: SUCRALFATE 1 GM TAB PO SCH ×4 (00:02→18:48)
[2020-10-27] MEDS: METOCLOPRAMIDE HCL 10 MG/2ML VIAL IV SCH ×4 (00:02→18:48)
[2020-10-27] MEDS: Pantoprazole IV 40 MG in SODIUM CHLORIDE 0.9% 50ML 50 ML IV SCH ×5 (04:06→21:46)
[2020-10-27] MEDS: SODIUM BICARBONATE 650 MG TAB PO SCH ×2 (09:53→18:47)
[2020-10-27] MEDS: TAMSULOSIN HCL 0.4 MG CAP PO SCH (09:53)
[2020-10-27] MEDS: SACUBITRIL/VALSARTAN 1 EACH TABLET PO SCH ×2 (09:53→18:47)
[2020-10-27] MEDS: CYANOCOBALAMIN INJ 1,000 MCG/ML VIAL IM SCH (09:53)
[2020-10-27] MEDS: FINASTERIDE 5 MG TAB PO SCH (09:53)
[2020-10-27] MEDS: ALLOPURINOL 100 MG TAB PO SCH ×2 (09:54→18:47)
[2020-10-27] MEDS: PENTOXIFYLLINE 400 MG TAB CR PO SCH ×3 (09:54→21:44)
[2020-10-27] MEDS: METOPROLOL SUCCINATE 25 MG TAB XL PO SCH (09:54)
[2020-10-27] MEDS: SIMVASTATIN 40 MG TAB PO SCH (21:44)
[2020-10-28] VITALS (7 sets, daily range): BP systolic 93–115; BP diastolic 50–64
[2020-10-28] MEDS: METOCLOPRAMIDE HCL 10 MG/2ML VIAL IV SCH ×4 (00:04→16:55)
[2020-10-28] MEDS: SUCRALFATE 1 GM TAB PO SCH ×4 (00:04→16:55)
[2020-10-28] MEDS: PANTOPRAZOLE SOD 40 MG TABEC PO SCH (09:34)
[2020-10-28] MEDS: CYANOCOBALAMIN INJ 1,000 MCG/ML VIAL IM SCH (09:42)
[2020-10-28] MEDS: SACUBITRIL/VALSARTAN 1 EACH TABLET PO SCH ×2 (09:43→16:55)
[2020-10-28] MEDS: TAMSULOSIN HCL 0.4 MG CAP PO SCH (09:43)
[2020-10-28] MEDS: SODIUM BICARBONATE 650 MG TAB PO SCH ×2 (09:43→16:55)
[2020-10-28] MEDS: FINASTERIDE 5 MG TAB PO SCH (09:43)
[2020-10-28] MEDS: METOPROLOL SUCCINATE 25 MG TAB XL PO SCH (09:44)
[2020-10-28] MEDS: PENTOXIFYLLINE 400 MG TAB CR PO SCH ×3 (09:44→22:15)
[2020-10-28] MEDS: ALLOPURINOL 100 MG TAB PO SCH ×2 (09:53→16:55)
[2020-10-28] MEDS: SIMVASTATIN 40 MG TAB PO SCH (22:15)
[2020-10-29] VITALS (8 sets, daily range): BP systolic 86–129; BP diastolic 40–74
[2020-10-29] MEDS: METOCLOPRAMIDE HCL 10 MG/2ML VIAL IV SCH ×4 (00:46→16:31)
[2020-10-29] MEDS: SUCRALFATE 1 GM TAB PO SCH ×4 (00:46→16:28)
[2020-10-29 05:01] LABS: BASOPHILS % 0.4 % (0.0-1.0); EOSINOPHILS # (AUTO) 0.3 (0.0-0.4); EOSINOPHILS % 3.7 % (0.0-6.0); HEMATOCRIT 28.1 % (38.2-49.6); LYMPHOCYTES # (AUTO) 1.6 (1.0-3.2); LYMPHOCYTES % 23.5 % (18.0-39.1); MEAN CORPUSCULAR HEMOGLOBIN 29.9 pg (28-32); MEAN CORPUSCULAR VOLUME 93.4 fL (81-99); MONOCYTES # (AUTO) 0.7 (0.2-0.8); MONOCYTES % 10.6 % (4.4-11.3); NEUTROPHILS # (AUTO) 4.1 (2.1-6.9); NEUTROPHILS % 60.8 % (38.7-80.0); PLATELET COUNT 352 x10e3/uL (140-360); RED BLOOD COUNT 3.01 x10e6/uL (4.3-5.7); RED CELL DISTRIBUTION WIDTH 15.3 % (11.7-14.4); RETICULOCYTE % 3.4 % (0.8-2.2)
[2020-10-29 05:30] LABS: ALBUMIN 1.6 g/dL (3.5-5.0); ALBUMIN/GLOBULIN RATIO 0.5 (0.8-2.0); ANION GAP 11.5 mmol/L (8-16); CALCIUM 7.6 mg/dL (8.4-10.2); CREATININE, SERUM 0.71 mg/dL (0.72-1.25); POTASSIUM 3.5 mmol/L (3.5-5.1)
[2020-10-29] MEDS: SODIUM BICARBONATE 650 MG TAB PO SCH ×2 (09:48→16:28)
[2020-10-29] MEDS: PANTOPRAZOLE SOD 40 MG TABEC PO SCH (09:48)
[2020-10-29] MEDS: TAMSULOSIN HCL 0.4 MG CAP PO SCH (09:48)
[2020-10-29] MEDS: SACUBITRIL/VALSARTAN 1 EACH TABLET PO SCH ×2 (09:48→16:27)
[2020-10-29] MEDS: FINASTERIDE 5 MG TAB PO SCH (09:48)
[2020-10-29] MEDS: METOPROLOL SUCCINATE 25 MG TAB XL PO SCH (09:49)
[2020-10-29] MEDS: PENTOXIFYLLINE 400 MG TAB CR PO SCH ×3 (09:49→21:10)
[2020-10-29] MEDS: ALLOPURINOL 100 MG TAB PO SCH ×2 (09:49→16:28)
[2020-10-29] MEDS: CYANOCOBALAMIN INJ 1,000 MCG/ML VIAL IM SCH (09:51)
[2020-10-29] MEDS: SIMVASTATIN 40 MG TAB PO SCH (21:10)
[2020-10-30] MEDS: SUCRALFATE 1 GM TAB PO SCH ×4 (00:57→15:53)
[2020-10-30] MEDS: METOCLOPRAMIDE HCL 10 MG/2ML VIAL IV SCH ×4 (00:57→15:53)
[2020-10-30 01:28] VITALS: BP 120/80
[2020-10-30 05:57] VITALS: BP 115/75
[2020-10-30 07:48] VITALS: BP 120/66
[2020-10-30] MEDS: FINASTERIDE 5 MG TAB PO SCH (07:51)
[2020-10-30] MEDS: SODIUM BICARBONATE 650 MG TAB PO SCH ×2 (07:51→15:53)
[2020-10-30] MEDS: SACUBITRIL/VALSARTAN 1 EACH TABLET PO SCH ×2 (07:51→15:53)
[2020-10-30] MEDS: TAMSULOSIN HCL 0.4 MG CAP PO SCH (07:51)
[2020-10-30] MEDS: PANTOPRAZOLE SOD 40 MG TABEC PO SCH (07:51)
[2020-10-30] MEDS: PENTOXIFYLLINE 400 MG TAB CR PO SCH ×2 (07:52→15:53)
[2020-10-30] MEDS: METOPROLOL SUCCINATE 25 MG TAB XL PO SCH (07:52)
[2020-10-30] MEDS: ALLOPURINOL 100 MG TAB PO SCH ×2 (07:53→15:53)
[2020-10-30] MEDS: CYANOCOBALAMIN INJ 1,000 MCG/ML VIAL IM SCH (07:56)
[2020-10-30 08:00] VITALS: BP 120/66
[2020-10-30 11:16] VITALS: BP 105/60
[2020-10-30 15:18] VITALS: BP 115/75
[2020-10-30] MEDS ORDERED: SODIUM BICARBO650 MG PO (15:41)
[2020-10-30] MEDS ORDERED: TOPROL XL25 MG PO (15:41)
[2020-10-30] MEDS ORDERED: HYDROCODON-ACE1 EA11 PO (15:41)
[2020-10-30] MEDS ORDERED: Cyanocobalamin Inj IM (15:41)
[2020-10-30] MEDS ORDERED: TESSALON PERLE100 MG PO (15:41)
[2020-10-30] MEDS ORDERED: ACETAMINOPHEN325 M1 PO (15:41)
[2020-10-30] MEDS ORDERED: CARAFATE1 GM PO (15:41)
[2020-10-30] MEDS ORDERED: PROTONIX40 MG/ML PO (15:41)
== END 2020-10-30 16:58 | DRG 326 ==
LOC: ER 10:19 → ERHOLD 12:31 → IMCU 14:16 → MED/SURG2 18:34
PROVIDERS: ADMIT Internal Medicine; ATTEND Internal Medicine
PROC: 30233N1 Transfusion of Nonautologous Red Blood Cells into Peripheral Vein, Percutaneous Approach (ICD-10-PCS; 2020-10-15)
PROC: 0DJ08ZZ Inspection of Upper Intestinal Tract, Via Natural or Artificial Opening Endoscopic (ICD-10-PCS; 2020-10-18)
PROC: 0D968ZZ Drainage of Stomach, Via Natural or Artificial Opening Endoscopic (ICD-10-PCS; 2020-10-20)
PROC: 04V23DZ Restriction of Gastric Artery with Intraluminal Device, Percutaneous Approach (ICD-10-PCS; 2020-10-21)
PROC: 0DB78ZX Excision of Stomach, Pylorus, Via Natural or Artificial Opening Endoscopic, Diagnostic (ICD-10-PCS; principal; 2020-10-24 13:30)
DX: K25.0 Acute gastric ulcer with hemorrhage (principal); K20.91 Esophagitis, unspecified with bleeding; I50.23 Acute on chronic systolic (congestive) heart failure; N17.9 Acute kidney failure, unspecified; E87.1 Hypo-osmolality and hyponatremia; D62 Acute posthemorrhagic anemia; I42.8 Other cardiomyopathies; I13.0 Hypertensive heart and chronic kidney disease with heart failure and stage 1 through stage 4 chronic kidney disease, or unspecified chronic kidney disease; L97.929 Non-pressure chronic ulcer of unspecified part of left lower leg with unspecified severity; K29.71 Gastritis, unspecified, with bleeding; K26.4 Chronic or unspecified duodenal ulcer with hemorrhage; E78.5 Hyperlipidemia, unspecified; J98.01 Acute bronchospasm; R09.02 Hypoxemia; N40.0 Benign prostatic hyperplasia without lower urinary tract symptoms; Z87.891 Personal history of nicotine dependence; E88.09 Other disorders of plasma-protein metabolism, not elsewhere classified; N28.89 Other specified disorders of kidney and ureter; I49.3 Ventricular premature depolarization; I25.10 Atherosclerotic heart disease of native coronary artery without angina pectoris; K44.9 Diaphragmatic hernia without obstruction or gangrene; D51.9 Vitamin B12 deficiency anemia, unspecified; N18.32 Chronic kidney disease, stage 3b; E11.22 Type 2 diabetes mellitus with diabetic chronic kidney disease; E87.6 Hypokalemia; I48.0 Paroxysmal atrial fibrillation; Z79.01 Long term (current) use of anticoagulants; Z75.1 Person awaiting admission to adequate facility elsewhere; Z86.73 Personal history of transient ischemic attack (TIA), and cerebral infarction without residual deficits
CPT/HCPCS: 36415; 37242; 43235; 43239; 70450; 71045; 71260; 74174; 74176; 74470; 75726; 76770; 80048; 80053; 81001; 82024; 82270; 82533; 82550; 82553; 82570; 82607; 82728; 82746; 82948; 83036; 83540; 83605; 83735; 83880; 84100; 84156; 84436; 84439; 84443; 84466; 84479; 84481; 84484; 85025; 85045; 85610; 86376; 86850; 86900; 86920; 87040; 88305; 88312; 93005; 93306; 93970; 96361; 97139; 99152; 99153; 99251; 99284; C1769; C1887; C1894; J1756; J1940; J2001; J2250; J2405; J2543; J2765; J3010; J3420; J7030; J7040; J7050; J7070; P9016; P9034; Q9967; U0002